=== PATIENT | female | born 1965 | race Caucasian/White ===

== ENCOUNTER 2020-05-28 08:41 | Emergency (ER) | payer OTHER ==
[2020-05-28] MEDS ORDERED: ETODOLAC500 MG PO (10:07)
== END 2020-05-28 17:12 | disposition home or self-care (01) ==
LOC: FER 08:41
DX: M25.561 Pain in right knee (principal); R20.2 Paresthesia of skin; I10 Essential (primary) hypertension; Z88.0 Allergy status to penicillin

== ENCOUNTER 2021-09-17 06:10 | Emergency (ER) | payer OTHER ==
[~2021-09-17 06:10] MED LIST: ETODOLAC500 MG PO
[2021-09-17] MEDS ORDERED: KETOROLAC TROME10 MG PO (06:27)
== END 2021-09-17 07:02 | disposition home or self-care (01) ==
LOC: FER 06:10
DX: M25.562 Pain in left knee (principal); Z88.1 Allergy status to other antibiotic agents; X50.1XXA Overexertion from prolonged static or awkward postures, initial encounter; Y92.009 Unspecified place in unspecified non-institutional (private) residence as the place of occurrence of the external cause
CPT/HCPCS: 73564; 96372; J1885